=== PATIENT | female | born 1960 ===

== ENCOUNTER 2018-05-28 22:57 | Observation (INO) ==
[2018-05-29] MEDS ORDERED: Naloxone 0.4 MG/ML INJ IVP PRN (02:50)
--- NOTE | 2018-05-29 03:39 | Internal Med History&Physical ---
Date of Encounter: 05/29/18 Time of Encounter: 03:34 Internal Medicine - H&P: HPI Chief complaint: left face numbness Admitted From: Hospital to Hospital Transfer Plans for Post Hospital Care: Home History of present illness: Ms. AN is a 58 year old female presented chief complaint of left facial numbness that started yesterday morning when she was trying to work. She does transfer from [facility] Numbness located below her left ear and initially her on her left upper and lower lip. Along with this patient had blurry vision and lightheadedness, presyncopal. states her blurry vision and lightheadedness lasted a few minutes and her numbness around her left upper and lower lip resolved. However her numbness below her ear still persists. Along with this patient had bilateral frontal headache that was aching in nature without radiation and currently resolved. She denies slurred speech, weakness, dysphasia, loss of balance. Patient denies having these symptoms before. She also denies chest pain, shortness of breath, abdominal pain, nausea , vomiting, diarrhea, lower extremity edema, rash. At [facility] patient with CT of the head which was negative, EKG which was normal sinus rhythm without ST-T wave changes, chest x-ray within normal limits, troponin within normal limits and urinalysis was within normal limits. She had a CBC and a BMP which did not have any abnormalities. Past Med Surg Social Fam HX - Past Medical History Medical history: diabetes, hyperlipidemia, hypertension Additional medical history: kidney stones Psychiatric history: anxiety - Past Surgical History Surgical History: hysterectomy Additional surgical history: tumor removal in abdomen, ovary removal - Social History Smoking Status: Former smoker Smokeless Tobacco Status: No Alcohol use: none Drug use: none Occupational status: employed Current living situation: Home - Independent - Family History Mother Hx Family Neurologic Disorders: Yes (stroke) Father Hx Family Neurologic Disorders: Yes (stroke) Internal Medicine - H&P: Meds Lisinopril [Zestril] 10 mg PO DAILY 05/29/18 [History] Simvastatin [Zocor] 40 mg PO HS 05/29/18 [History] Triamterene/HCTZ 37.5/25mg [Dyazide] 1 each PO DAILY 05/29/18 [History] metFORMIN [Glucophage] 500 mg PO BID 05/29/18 [History] 3 Allergy/AdvReac Type Severity Reaction Status Date / Time No Known Allergies Allergy Verified 05/29/18 02:10 All Systems PM: A 10-system review of systems was performed and is negative for pertinent findings except as documented above in the HPI. Review of systems: Constitutional: Denies fever, chills HEENT: Denies trauma, eye discharge, ear pain, ear discharge neck pain, sore throat, rhinorrhea. Reports headache, blurry vision Heart: Denies chest pain palpitations, LE edema Lungs: Denies shortness of breath cough Abdomen: Denies abdominal pain nausea vomiting diarrhea MSK: Denies back pain, falls, joint pain Kidney: Denies dysuria, hematuria Skin: Denies rash, ulcers Neuro: Reports left facial numbness, and tingling Psych: denies axniety, depression - Constitutional Vitals: Temp Pulse Resp BP Pulse Ox 97.9 F 79 14 147/87 97 05/29/18 01:28 05/29/18 01:28 05/29/18 01:28 05/29/18 01:28 05/29/18 01:28 Exam: General: pleasant, without distress HEENT: Head atraumatic, normocephalic, EOMI, PERRL, absent ear discharge or trauma, Moist Mucous Membranes, uvula midline Neck: nontender to palpation, absent lymphadenopathy, Cardiovascualr: Regular rate and rhythm with no murmur, gallops or rubs, absent pedal edema, radial pulses 2 out of 4 Lungs: Clear to auscultation bilaterally, not in respiratory distress Abdomen: Soft nontender, nondistended positive bowel sounds, absent hepatomegaly Skin: warm and dry, absent rash, absent open wounds and nodules MSK: absent clubbing, cyanosis, joints without swelling Neuro: Cranial nerves II through XII intact except for vertical band like numbness below left ear, UE and LE sensation equal bilaterally, UE and LEstrength 5/5, alert oriented 3, Heel to hdz intact, finger to nose intact, Gait intact, rhombergs sign negative, b/l plantar reflexes downwards Psych: good insight and judgement, anxious, depressed - Assessment and plan (1) Left facial numbness Current Visit: Yes Status: Acute Assessment and plan: 58-year-old female presents with chief complaint of left facial numbness CT head negative Troponin within normal limits EKG sinus rhythm without ST-T wave changes Neuro exam nonfocal, nonlateralizing except for vertical bandlike numbness below her left ear Patient mother and father from stroke She has a history of hyperlipidemia, diabetes, hypertension There is concern for TIA/stroke We will obtain MRI, echocardiogram, carotid Dopplers. Patient is ambulating independently and therefore no need for PT OT. We will order a bedside swallow eval. Neuro checks. start aspirin, statin. check lipid panel. 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
[2018-05-29] MEDS ORDERED: *HR* Dextrose 50 % in Water (Syg) 50 ML SYRINGE IVP PRN (03:47)
[2018-05-29] MEDS ORDERED: D5% in Water 1,000 ML IVC PRN (03:47)
[2018-05-29] MEDS ORDERED: Dextrose Gel 15 GM/37.5 ML TUBE PO PRN ×2 (03:47)
[2018-05-29 04:41] LABS: Basophils % 0.6 %; Eosinophils # 0.1 K/mcL (0.0-0.6); Eosinophils % 2.7 %; Hematocrit 40.3 % (35.3-44.9); Hemoglobin 13.5 g/dL (11.5-15.4); Immature Granulocytes % 0.4 % (0-4); Lymphocytes # 2.2 K/mcL (0.6-4.6); Lymphocytes % 40.9 %; Mean Corpuscular HGB Conc 33.5 g/dL (31.6-35.5); Mean Corpuscular Hemoglobin 28.8 pg (28.0-33.3); Mean Corpuscular Volume 85.9 fL (83.0-100.0); Mean Platelet Volume 11.2 fL (9.4-12.4); Monocytes # 0.4 K/mcL (0.0-1.3); Neutrophils # 2.6 K/mcL (1.6-8.9); Platelet Count 218 K/mcL (140-400); Red Blood Count 4.69 M/mcL (3.82-4.97); Red Cell Distribution Width 12.6 % (11.5-14.5); Segmented Neutrophils % 48.4 %
[2018-05-29 04:45] LABS: INR 0.9
[2018-05-29 04:55] LABS: BUN/Creatinine Ratio 20 (6-26); Blood Urea Nitrogen 14 mg/dL (6-20); Calcium 9.2 mg/dL (8.6-10.3); Carbon Dioxide 27 mEq/L (23-29); Chloride 106 mEq/L (98-107); Chol/HDL Ratio 4.6 (0-4.9); Cholesterol 148 mg/dL (< 200); Glucose 138 mg/dL (70-105); HDL Cholesterol 32 mg/dL (40-59); LDL Cholesterol,Calculated 78 mg/dL (0-99); Osmolality,Calculated 295 (280-300); Potassium 3.6 mEq/L (3.5-5.1); Sodium 141 mEq/L (136-145); Triglycerides 192 mg/dL (< 150); eGFR For Non-African Americans > 60 (> 60)
[2018-05-29] MEDS: *HR* Heparin 5,000 UNIT/ML VIAL SQ SCH ×3 (05:24→21:36)
[2018-05-29] MEDS: Aspirin 81 MG TAB.CHEW PO SCH (08:14)
[2018-05-29] MEDS: Insulin LISPRO 300 UNITS/3 ML VIAL SQ SCH ×3 (08:14→17:17)
--- NOTE | 2018-05-29 14:28 | Event Note ---
Date of Encounter: 05/29/18 Time of Encounter: 08:50 58-year-old female with history of hypertension, diabetes, who was admitted with new onset of left-sided facial numbness, associated with dizziness and blurred vision. Seen and examined at bedside. Symptoms have resolved at this time. Chest -S1, S2 heard Lungs are clear to auscultation B/L ENVIRONMENTAL DEPARTMENT MANAGER- AAO*3, no focal deficits TIA vs migraine- patient has h/o- headaches but not associated with neurologic symptoms, not diagnosed with migraines; no h/o- previous VTE, stroke, a.fib; CT head showed no acute infarct; f/up MRI brain, CD, TTE; continue Telemetry monitoring; Lipid profile shows slightly elevated TGs; continue statin, started on ASA; Essential HTN DM-2 Anxiety Hyperlipidemia
[2018-05-29] MEDS ORDERED: Insulin LISPRO 300 UNITS/3 ML VIAL SQ SCH (21:00)
[2018-05-29] MEDS ORDERED: Acetaminophen 325 MG TABLET PO PRN (23:02)
[2018-05-30] MEDS: *HR* Heparin 5,000 UNIT/ML VIAL SQ SCH (06:47)
[2018-05-30] MEDS: Aspirin 81 MG TAB.CHEW PO SCH (10:01)
[2018-05-30] MEDS: Insulin LISPRO 300 UNITS/3 ML VIAL SQ SCH (10:01)
[2018-05-30 11:43] VITALS: BP 135/88
--- NOTE | 2018-05-30 13:00 | Discharge Summary ---
- NOTES TO OUTPATIENT PROVIDER Notes to Outpatient Provider: Left facial numbness and headache, possible TIA vs complex migraine; stroke workup negative; to monitor TGs; Date of Encounter: 05/30/18 Time of Encounter: 12:57 - Discharge Diagnosis (1) Left facial numbness Priority: Primary Status: Acute (2) History of hypertension Priority: Secondary Status: Chronic (3) History of hyperlipidemia Priority: Primary Status: Chronic (4) Diabetes mellitus Priority: Secondary Status: Chronic Qualifiers: Diabetes mellitus type: type 2 Diabetes mellitus fci insulin use: without fci use Diabetes mellitus complication status: without complication Qualified Code(s): E11.9 - Type 2 diabetes mellitus without complications Hospital course: Ms. AN is a 58 year old female with history of hypertension and diabetes, who was admitted with sudden and new onset of left-sided facial numbness and near syncope. She was admitted for completing TIA/stroke workup. CT head did not show any acute infarct/bleed. Patient's symptoms resolved by the time of my initial evaluation. She was started on aspirin and continued on statin that she takes at home. MRI brain showed no acute infarct or hemorrhage, showed chronic small vessel ischemic disease. Transthoracic echocardiogram showed preserved EF, mild diastolic dysfunction, no PFO or atrial thrombus. Bilateral carotid Doppler showed nonstenotic plaque. Lipid profile showed slightly elevated triglycerides, patient was counseled about lifestyle modifications including diet, exercise and weight loss and she is to continue statin and start taking aspirin daily. She will follow-up with her PCP for further management. Discharge discussed with: patient, nurse - Time Spent with Patient Total time spent providing and/or coordinating discharge services: Greater than 30 minutes (40 min) - Discharge Medications Home Medications: Lisinopril [Zestril] 10 mg PO DAILY 05/29/18 [History] Simvastatin [Zocor] 40 mg PO HS 05/29/18 [History] Triamterene/HCTZ 37.5/25mg [Dyazide] 1 each PO DAILY 05/29/18 [History] metFORMIN [Glucophage] 500 mg PO BID 05/29/18 [History] Aspirin 81 mg PO DAILY tab.chew 05/30/18 [Rx] Allergies/Adverse Reactions: 3 Allergy/AdvReac Type Severity Reaction Status Date / Time No Known Allergies Allergy Verified 05/29/18 02:10 Date of admission: 05/29/18 01:18 Discharging clinician: Angelique Mario Anticipated date of discharge: 05/30/18 - Constitutional Vitals: Temp Pulse Resp BP Pulse Ox 98.0 F 71 16 135/88 96 05/30/18 11:40 05/30/18 11:40 05/30/18 11:40 05/30/18 11:40 05/30/18 11:40 General appearance: Present: A&O X 3, morbidly obese, answers questions appropriately Exam: . - Cardiovascular Cardiovascular exam: Present: RRR, +S1, +S2. Absent: diastolic murmur, gallop, rubs, systolic murmur - Patient Status Disposition: Home, Self-Care Condition: Good Functional capacity at discharge: independent ambulation Overall status at discharge: patient is back to baseline - Discharge Instructions Additional Instructions: F/u[ with PCP in 1-2 weeks - Diet and Activity Activity: resume usual activities as tolerated Diet: diabetic diet, low fat, low cholesterol, low salt diet, other (weight loss )
== END 2018-05-30 13:43 | disposition home or self-care (01) ==
LOC: 3BNU → SUATTDRO 05-29 01:18
PROVIDERS: ADMIT Family Medicine; ATTEND Internal Medicine